=== PATIENT | female | born 1950 ===

== ENCOUNTER 2017-06-22 06:14 | Inpatient (IN) | payer MEDICARE, MEDICAID ==
--- NOTE | 2017-06-19 14:07 | HP ---
AMENDED REPORT NOW INCLUDES COSIGNER DESIGNATION - ESIGNED BEFORE ADJUSTMENTS HISTORY AND PHYSICAL: DATE OF OFFICE VISIT: 06/17/17 DATE OF PROCEDURE: 06/22/17. PROCEDURE: Left total knee replacement. SURGEON: Dr. Aftab Lamb.* (DICTATED BY VICKY KYLE) HISTORY OF PRESENT ILLNESS: Ms. Cormier is a 66-year-old female who has been having progressive troubles with her left knee and has failed conservative treatments such as physical therapy and steroid injections; however, felt that this did not make much difference. She is scheduled to undergo an elective left total knee arthroplasty by Dr. 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 PAST MEDICAL HISTORY: 1. Seizure disorder with the last seizure being several years ago, unknown exact timing. 2. Hypothyroidism. 3. Depression. 4. Osteopenia. 5. Left hemiplegia. 6. Vitamin D deficiency. 7. Mental disability. 8. Anemia. 9. Bipolar disorder. PAST SURGICAL HISTORY: 1. Total knee replacement on the right side in 2011; no complications. 2. Right knee scope in 2015. 3. Appendectomy in 1983. MEDICATIONS: 1. Tegretol-XR 200 mg 2 tablets by mouth twice a day. 2. Lamictal 100 mg 1 tablet in morning and 1 tablet at night. 3. PreviDent 1.1%. 4. Synthroid 125 mcg 1 tablet by mouth daily. 5. Zoloft 100 mg 1 tablet by mouth daily. 6. Tylenol 325 mg 2 tablets every 4 hours as needed for pain. 7. Colace 100 mg 1 tablet by mouth 2 to 3 times a day as needed for constipation. 8. Peridex 0.12% 5 mL twice a day as directed. 9. Prilosec 1 tablet daily. 10. Vitamin B complex 100 mg 1 tablet daily. 11. MiraLAX 1 packet per day as needed for constipation. 12. Caltrate 600 plus vitamin D one tablet by mouth twice daily. 13. Detrol LA 4 mg 1 tablet once daily. 14. Zoloft 50 mg 1 tablet by mouth every day. 15. Joey-In-Rosalie 325 mg 1 tablet daily. 16. Mobic 7.5 mg 1 tablet by mouth daily (this medication was stopped due to the patient's renal insufficiency). ALLERGIES: 1. PENICILLIN. 2. INFLUENZA A VACCINE. [facility] HISTORY: Positive for cancer. Denies any heart trouble or diabetes. SOCIAL HISTORY: The patient currently is living in a detention in an individual living center at [facility]. She is single, disabled. No smoking and no alcohol use. Exercises sporadically. REVIEW OF SYSTEMS: General: Denies recent weight gain or weight loss. No lightheadedness, dizziness, or syncopal episodes. Cephalic: Denies any headaches. Has a history of difficulty with balance. Cardiovascular: No history of LA, chest pain, or palpitations. Respiratory: No chronic cough. No shortness of breath. No history of asthma. GI: Positive history of GERD. No nausea, vomiting, constipation or diarrhea. Genitourinary: No urinary frequency or urgency. No history of blood in the urine or stool. No history of UTIs. Positive history of chronic renal insufficiency, which has been monitored and is being followed by [facility]. Musculoskeletal: Positive for left knee pain. No back pain or neck pain. Neurological: No numbness or tingling. Positive history for footdrop on the left side. Skin: No history of rashes, lumps, or sores. Does have a prior problem with groin rash; however , none currently. Hematologic: Positive for anemia. No history of DVTs or PEs. Endocrine positive hypothyroidism. No diabetes. PHYSICAL EXAMINATION GENERAL: Well appearing, in no acute distress. Alert and oriented, very pleasant. HEENT: Normocephalic, atraumatic. Trachea midline. EOMI. LUNGS: Clear to auscultation bilaterally. No crackles, rhonchi or wheezes. CARDIAC: Regular rate and rhythm. No murmurs, gallops or rubs. ABDOMEN: Soft, nontender, and nondistended. Negative CVA tenderness bilaterally. MUSCULOSKELETAL: Left knee with range of motion of 10 to 110 degrees. Positive valgus deformity. Positive laxity both medial and laterally with firm endpoints. Tender over the lateral and medial joint spaces. No joint effusion noted. DIAGNOSTIC STUDIES/LAB DATA: X-rays were obtained at [facility] and were reviewed by Dr. Lamb, which show [id number] in the lateral compartment with spurs in all 3 compartments and has significant deformity. ASSESSMENT: Endstage osteoarthritis, left knee. PLAN/RECOMMENDATIONS: The patient has elected to undergo a left total knee replacement by Dr. Lamb on 06/22/17. She has been seen by her primary care doctor, Dr. Salamanca at [facility], who has given her medical clearance as she did have a mild elevation of her creatinine to 1.7; however, has been diagnosed with stage [address] Salamanca feels that this is close to her baseline. She has stopped her meloxicam and has recommended avoiding nonsteroidals during the hospital and postoperative period. The patient has still questions with regards to her surgery. She will need rehabilitation afterwards as she will be unable to return to the assisted living facility. VICKY KYLE [id number]/[facility] #: [id number] MTDD
[~2017-06-22 06:14] MED LIST: Buffered Lidocaine 0.9% SYRIN* 5 ML/SYR SYRINGE INTRADERM ONE; Buffered Lidocaine 0.9% SYRIN* 5 ML/SYR SYRINGE ONE; Clindamycin 900 MG IVPREMIX(* 900 MG/50 ML SDV IV ONE; Famotidine IV* 10 MG/ML 2 ML (20 mg) IV ONE; Famotidine IV* 10 MG/ML 2 ML (20 mg) ONE
[2017-06-22] MEDS ORDERED: ceFAZolin 2 GM PREMIX (*) 2 GM/50 ML BAG IVPB ONE (06:59)
[2017-06-22] MEDS ORDERED: Lidocaine 1% MPF wEPI 200,000* 30 ML SDV ONE (07:07)
[2017-06-22] MEDS ORDERED: Bupivacaine 0.5%* 50 ML VIAL ONE (07:07)
[2017-06-22] MEDS ORDERED: Ketorolac INJ* 30 MG/ML 1 ML VIAL ONE (07:08)
[2017-06-22] MEDS ORDERED: Dexamethasone IV* 4 MG/ML 1 ML (4 MG) ONE (07:08)
[2017-06-22] MEDS ORDERED: Midazolam* 1 MG/ML 5 ML VIAL (5 MG) ONE (07:08)
[2017-06-22] MEDS ORDERED: fentaNYL* 50 MCG/ML 5 ML VIAL (250 MCG VIAL) ONE (07:08)
[2017-06-22] MEDS ORDERED: Lidocaine 2% PF * 5 ML VIAL ONE (07:08)
[2017-06-22] MEDS ORDERED: Propofol* 10 MG/ML 20 ML BTL IV PUSH ONE (07:08)
[2017-06-22] MEDS ORDERED: EPHEDrine (Pressors)* 50 MG/ML VIAL ONE (07:45)
[2017-06-22] MEDS ORDERED: Naloxone* 0.4 MG/ML 1 ML VIAL IV PRN (08:17)
[2017-06-22] MEDS ORDERED: fentaNYL* 50 MCG/ML 2 ML VIAL (100 MCG VIAL) IV PRN (08:17)
[2017-06-22] MEDS ORDERED: Ondansetron ODT TAB* 4 MG PO PRN (08:17)
[2017-06-22] MEDS ORDERED: diPHENhydraMINE PO* 25 MG PO PRN (10:01)
[2017-06-22] MEDS ORDERED: Morphine VIAL* 4 MG/ML VIAL (1 ml vial) IV PRN (10:01)
[2017-06-22] MEDS ORDERED: Magnesium Hydroxide LIQ* 30 ML UDC PO PRN (10:01)
[2017-06-22] MEDS ORDERED: diPHENhydraMINE IV* 50 MG/ML 1 ml VIAL (BENADRYL) IV PRN (10:01)
[2017-06-22] MEDS ORDERED: Neomycin/Polym/Bacit TOP OINT* 15 GM TOPICAL PRN (10:11)
[2017-06-22] MEDS ORDERED: Hydrocortisone 1% CREAM* 30 GM TUBE TOPICAL PRN (10:11)
[2017-06-22] MEDS ORDERED: CLEOCIN T 1% TOPICAL PRN (10:11)
[2017-06-22] MEDS ORDERED: HYDROmorphone INJ* 2 MG/ML CARPUJECT SYRINGE ONE (10:57)
[2017-06-22] MEDS: HYDROmorphone INJ* 1 MG/ML CARPUJECT SYRINGE IV PRN ×2 (10:59→11:10)
[2017-06-22] MEDS ORDERED: ceFAZolin 1 GM in Dextrose (*) 1 GM/50 ML BAG IVPB SCH (11:00)
--- NOTE | 2017-06-22 11:13 | RAD ---
Indication: Left knee bipolar arthroplasty 3 views of left knee demonstrates bipolar left knee arthroplasty in satisfactory position. No loosening is noted. IMPRESSION: LEFT KNEE REPLACEMENT IN SATISFACTORY POSITION.
--- NOTE | 2017-06-22 11:23 | OP ---
OPERATIVE REPORT: DATE OF OPERATION: 06/22/17 DATE OF : 52 SURGEON: Aftab Lamb MD ASSISTANT IN NURSING: Kandy Reyes RPA ANESTHESIA: General. PRE-OP DIAGNOSIS: Osteoarthritis, left valgus knee. POST-OP DIAGNOSIS: Osteoarthritis, left valgus knee. OPERATIVE PROCEDURE: Left total knee arthroplasty. ESTIMATED BLOOD LOSS: Less than 50 cc. COMPLICATIONS: None. HARDWARE: Clotilde Persona #5 femur, E tibia, 10 mm polyethylene, 29 mm patella. SUMMARY: Ms. Cormier is a 66-year-old female who has been having more and more troubles with left knee pain. She had a similar history with the right knee where she had very specific arthritic changes and everything was done to try and avoid surgery. She eventually had a right total knee arthroplasty and after 2 weeks she finally was able to get her pain control and progressed with PT. When she presented to the office, the left knee was now at that point. Ms. Cormier and the staff with her were very interested in a left total knee arthroplasty. Considering that nothing had given her lasting relief on the right, I discussed with him that a total knee arthroplasty should work well to decrease her pain and improve her function. We would also try to make sure she was on a standing schedule of pain medication to help with the pain control. Risks of surgery such as infection, scar formation, stiffness, DVT, pulmonary embolism, hardware failure, and the need for rehab were some of the risks discussed. They had all wished to proceed. DESCRIPTION OF PROCEDURE: The patient was brought to the OR and general endotracheal anesthesia was established. Martinez catheter was placed. Tourniquet was placed over the proximal left thigh and was used during the case. Total tourniquet time would be approximately 75 minutes. Left knee was prepped and then draped. Esmarch was used to exsanguinate the leg and the tourniquet was raised. Incision line was infiltrated using 10 cc of 0.5% Marcaine without epinephrine and 2% lidocaine with epinephrine. A total of 60 cc of that mixture would be used where a 10 cc to be placed into the pouch, 10 into each gutter and 20 to the posterior aspect of the knee. Kanyd Reyes was present for all aspects of the case and the case could not have been done without an construction project assistant. Incision was made, centered about the patella and carried down to the skin and her subcutaneous tissues. She had almost no fat. Extensor mechanism was nicely exposed and a sharp parapatellar arthrotomy was made. Quite a bit of clear yellowish joint fluid was encountered. Parapatellar arthrotomy was made and quite a bit of clear yellowish joint fluid was encountered. Fat pad was sharply excised and the soft tissues were sharply elevated from the medial side of the tibia. Patella measured 22 mm in thickness and a nice 9 mm cut was taken. Patella was then easily subluxated laterally. The knee was flexed up. Nice exposure of the distal femur was obtained. Strep drill was used to open the femoral canal. Intramedullary guide was placed. Guide was set to resect 2 mm from the medial side and set at 4 degrees. Guide was aligned with the epicondyles and pinned into place. Distal femoral cutting guide was pinned into place and the intramedullary guide was removed. The intramedullary guide was not seated on the lateral side, but I did not want it on the lateral side as she had quite a bit of bone loss laterally with her valgus deformity. With the cutting guide set, it appeared would take just a skim right off the top side of the femur on that lateral side freshening it up. It appeared like a more normal cut on the medial side. Femoral cut was taken and I was pleased with the cut. She was then measured and a 5 seemed to fit perfectly. Holes were drilled and cutting guide was impacted into place. Drill was run through the superior hole and it appeared that I would not notch the femur. Anterior and posterior femoral cuts followed by the chamfer cuts were all taken. Attention was then turned to the tibia. Step drill was used to open the tibial canal and the intramedullary guide was placed. Outrigger was assembled and adjusted until it appeared it would take just 2 mm from the worn lateral side. This also corresponded to only taking 2 from the not very worn medial side. Cutting guide was pinned into place and the proximal tibial cut was taken. It appeared a nice cut was obtained. A 10 spacer block was placed and she came out nicely into full extension with correction of her deformity and there was no laxity to her MCL. She was tight both in flexion and extension and an additional 2 mm were resected. This then removed the bone, which had been lost on the lateral compartment of the knee. An E seemed to fit perfectly and this was pinned into place. Proximal tibia was drilled and then punched. A #5 femur was placed and the notch cut was then finished and she was trialed with a 10 mm poly. She came out nicely into full extension, easily flexed, and the patella tracked perfectly even without a prosthesis. Patella was sized and the 29 sat very nicely. Holes were drilled and trial was snapped into place. She had the same wonderful motion and stability. Trial instrumentation was removed and the knee was copiously pulse lavaged. Cement was being prepared. Tibia followed by femur and patella were all cemented into place. Once the cement had hardened, the knee was searched for excess cement and then injected with the local. Knee was again copiously pulse lavaged and she was trialed with a 10 and had the same wonderful motion and stability. 10 polyethylene was then snapped into place. Knee was again pulse lavaged and the parapatellar arthrotomy was repaired using interrupted #1 Vicryl sutures. Tourniquet was let down. No significant bleeding was encountered. Subcutaneous tissues were reapproximated with 2-0 Vicryl. Skin was closed using nayeli. Sterile dressing was applied. The patient was extubated in the OR and was stable on transfer to the recovery room. [id number]/[facility] #: [id number] MTDD
[2017-06-22] MEDS ORDERED: Cisatracurium* 2 MG/ML MDV 5 ML ONE (11:52)
[2017-06-22] MEDS: D5W 1/2 NS 1000 ML BAG* 1,000 ML IV SCH ×2 (12:10→22:18)
[2017-06-22] MEDS: Acetaminophen TAB* 325 MG PO SCH ×2 (13:56→22:10)
[2017-06-22] MEDS: Heparin VIAL(*) 5000 UNITS/ML VIAL (FIVE THOUSAND) SUBCUT SCH ×2 (13:57→22:14)
[2017-06-22] MEDS: traMADol TAB* 50 MG PO SCH ×3 (13:59→17:20)
[2017-06-22] MEDS ORDERED: Acetaminophen TAB* 325 MG PO SCH (14:00)
[2017-06-22] MEDS ORDERED: Acetaminophen ADULT LIQ* 650 MG/20.3 ML UDC PO SCH (14:00)
--- NOTE | 2017-06-22 15:22 | CONS ---
CONSULTATION REPORT: DATE OF CONSULTATION: 06/22/17. REQUESTING PHYSICIAN: Dr. Lamb. REASON FOR CONSULTATION: Medical co-management postoperatively. CHIEF COMPLAINT: Knee osteoarthritis, admitted after an elective left total knee replacement. HISTORY OF PRESENT ILLNESS: This is a 66-year-old female with a complicated history which is obtained from her nurse Vanessa at the facility she resides in. Ms. Cormier was taken to the operating room this morning electively for a left total knee after severe osteoarthritis has failed conservative measures. We were asked to see the patient for medical co-management. Her medical history includes; history of seizure disorder, hypothyroidism, mental retardation, bipolar disorder, chronic kidney disease, left sided hemiparesis since , stress incontinence, and fibroids. All of these conditions have been managed by her primary care physician at [facility] and she has also recently been seeing [facility] for work up of a newly diagnosed chronic kidney disease. According to Vanessa the etiology of her chronic kidney disease has not yet been uncovered. Ms. Cormier is seen in the PACU this morning and she feels well. She is awake and says she has some pain in her legs, however Vanessa adds that Libia always complains of pain and that a pain assessment postoperatively will have to use some discretion given Libia' chronic pain and mental retardation. PAST MEDICAL HISTORY: 1. History of seizure disorder, she has not had seizure for 10 years. 2. Hypothyroidism. 3. Bipolar disorder and depression. 4. Mental retardation. 5. Chronic kidney disease. 6. Iron and B12 deficiency. 7. 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 8. Stress incontinence. 9. Uterine fibroids. PAST SURGICAL HISTORY: Ms. Cormier also had her right knee replaced. She has had an appendectomy and vaginal cyst removed. HOME MEDICATIONS: I have asked Vanessa to bring in an updated home medication list. I will review this when she brings it back. SOCIAL HISTORY: Ms. Cormier lives at a residential home for people with disabilities in [place]. Her decision maker is her cousin Briseida Resendiz, who signs her consents for her. She also has siblings who live on [place]. She has no history of substance abuse. REVIEW OF SYSTEMS: Ms. Cormier denies chest pain, shortness of breath, nausea, vomiting, diarrhea, constipation, recent illness, with cough, cold, runny nose, sore throat. PHYSICAL EXAMINATION: Heart rate 91, respiratory rate 17, pulse ox 96% on 2 L, blood pressure 126/86, temperature 97.7. General: Alert, well appearing female in no distress. HEENT: Pupils equal round and reactive to light. Moist oral mucosa. Poor dentition. She does have a slight left facial droop, however this is difficult assess as she is uncooperative with a cranial nerve exam. Neck : No cervical or supraclavicular lymphadenopathy. No JVP. Chest: Regular rate and rhythm. No murmurs appreciated. PMI is nondisplaced. Lungs are clear bilaterally. Abdomen is soft, nontender, nondistended. No guarding or rebound. Extremities: Left knee is in Carlos wrap and in an immobilizer. Her DP and PT pulses are 2+ bilaterally. Her left sided upper and lower extremities are 0/5 in strength and right sided 5/5. LABORATORY DATA: Labs reviewed on 06/17/17, her creatinine was 1.73, no baseline is available in our system, at that time her LFTs and electrolytes were within normal limits. On 06/17/17, her white blood cells, hemoglobin and platelets were also within normal limits. She had a negative urinalysis at that time as well. ASSESSMENT AND PLAN: This is a 66-year-old female with history of endstage osteoarthritis, mental retardation and mental illness, who underwent an elective left TKA this morning and we were asked to see for medical co- management. 1. Status post left TKA postop day #0: Defer PT and pain management to orthopedic surgery. I would avoid NSAIDs. Her nurse Vanessa states that she has responded well to narcotics in the past and has not had any issues with pain management, otherwise. 2. Chronic kidney disease: This is still being worked up by her PCP and her postal service clerk. Again I would avoid nephrotoxic medications and keep her euvolemic and avoid hypotension. The differential for her chronic kidney disease is broad at this point, but we will monitor her volume status and her electrolytes closely. 3. Seizure disorder: She has not had seizure for 10 years. The orthopedic team has continued her carbamazepine and lamotrigine which I would agree with. I will review her med rec when Vanessa brings them in this afternoon. 4. Bipolar disorder and depression: I agree with continuing her home medications as you have done. She is on sertraline and lamotrigine. 5. Mental retardation noted. Her nurse Vanessa is helpful in the history. Vanessa cell phone number is [phone]. 6. History of stress incontinence: Continue tolterodine. 7. DVT prophylaxis: I see that warfarin has been started by orthopedic surgery. 8. Hypothyroidism: Continue Synthroid as ordered. Thank you for allowing me to participate in the care of this patient. Please feel free to call me with any questions or concerns. [id number]/[facility] #: [id number] JORGE
[2017-06-22] MEDS: ceFAZolin 1 GM in Dextrose (*) 1 GM/50 ML BAG IVPB SCH (15:50)
[2017-06-22] MEDS ORDERED: Warfarin TAB(*) 6 MG PO ONE (17:00)
[2017-06-22] MEDS: Docusate CAP* 100 MG PO SCH ×2 (17:17→22:09)
[2017-06-22] MEDS: PREVIDENT SCH (17:18)
[2017-06-22] MEDS: carBAMazepine TAB(*) 200 MG PO SCH (22:08)
[2017-06-22] MEDS: lamoTRIgine TAB(*) 100 MG PO SCH (22:08)
[2017-06-22] MEDS: oxyCODONE TAB* 5 MG TAB PO PRN (22:09)
[2017-06-22] MEDS: Ferrous Gluconate TAB* 324 MG TAB PO SCH (22:10)
[2017-06-22] MEDS: Magnesium Hydroxide LIQ* 30 ML UDC PO SCH (22:12)
[2017-06-22] MEDS: Chlorhexidine MOUTHWASH 0.12%* 15 ML UDC SWISH SPIT SCH (22:13)
[2017-06-23] MEDS: ceFAZolin 1 GM in Dextrose (*) 1 GM/50 ML BAG IVPB SCH ×2 (00:02→07:56)
[2017-06-23] MEDS: Morphine VIAL* 4 MG/ML VIAL (1 ml vial) IV PRN ×2 (00:08→07:03)
[2017-06-23 05:19] LABS: Hematocrit 26 % (35-47); Mean Platelet Volume 5.9 um3 (7.4-10.4); Platelet Count 182 10^3/ul (150-450)
[2017-06-23 05:27] LABS: INR 0.97 (0.77-1.02)
[2017-06-23 05:35] LABS: EGFR Non-African American 32.3 (>60)
[2017-06-23] MEDS: traMADol TAB* 50 MG PO SCH ×2 (05:37→17:11)
[2017-06-23] MEDS: Levothyroxine TAB* 125 MCG TAB PO SCH (05:37)
[2017-06-23] MEDS: Heparin VIAL(*) 5000 UNITS/ML VIAL (FIVE THOUSAND) SUBCUT SCH ×3 (05:38→21:55)
[2017-06-23] MEDS: oxyCODONE TAB* 5 MG TAB PO PRN ×3 (07:01→19:20)
[2017-06-23] MEDS: Polyethylene Glycol 3350* 17 GM PACKET PO SCH (09:50)
[2017-06-23] MEDS: lamoTRIgine TAB(*) 100 MG PO SCH ×2 (09:51→21:49)
[2017-06-23] MEDS: Docusate CAP* 100 MG PO SCH ×3 (09:51→21:49)
[2017-06-23] MEDS: carBAMazepine TAB(*) 200 MG PO SCH ×2 (09:51→21:49)
[2017-06-23] MEDS: Omeprazole CAP* 20 MG PO SCH (09:52)
[2017-06-23] MEDS: Oxybutynin XL TAB* 5 MG PO SCH (09:52)
[2017-06-23] MEDS: Acetaminophen TAB* 325 MG PO SCH ×3 (09:53→21:48)
[2017-06-23] MEDS: Sertraline* 50 MG TAB PO SCH (09:54)
[2017-06-23] MEDS: Sertraline* 100 MG TAB PO SCH (09:54)
[2017-06-23] MEDS: Ferrous Gluconate TAB* 324 MG TAB PO SCH ×2 (09:56→21:49)
[2017-06-23] MEDS: Magnesium Hydroxide LIQ* 30 ML UDC PO SCH ×2 (09:56→21:52)
[2017-06-23] MEDS: Cyclobenzaprine TAB* 10 MG PO PRN ×2 (10:07→21:49)
[2017-06-23] MEDS: Chlorhexidine MOUTHWASH 0.12%* 15 ML UDC SWISH SPIT SCH ×2 (10:09→21:53)
--- NOTE | 2017-06-23 10:23 | PN ---
Progress Note - Progress Note Date of Service: 06/23/17 SOAP: Subjective: []Patient seen OOB in chair. She reports significant pain of her left knee but does not give a numeric value. Denies chest pain, shortness of breath, dizziness. 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 Per nurse Vanessa, took 7-10 days to cooperative with physical therapy after RTK and at baseline although slower to respond, her left side is functional including ability to DF/ PF and wiggle toes. Objective: [] Vital Signs Temp 98.5 F 06/23/17 07:47 Pulse 84 06/23/17 07:47 Resp 18 06/23/17 10:08 BP 109/59 06/23/17 07:47 Pulse Ox 95 06/23/17 08:00 Intake & Output 06/22/17 06/23/17 06/23/17 18:59 06:59 18:59 Intake Total 2430 2080 360 Output Total 625 1700 150 Balance 1805 380 210 Intake: IV Fluids 1950 980 D5W 1/2 NS 980 LR 1900 NS 50ML, Cefazolin 2G 50 Oral 480 1100 360 Output: Urine 150 Martinez 625 1700 Other: Estimated Void Small # Bowel Movements 1 Estimated Stool Amount Medium Laboratory Last Values Hgb 9.0 g/dl (12.0-16.0) L 06/23/17 05:12 Hct 26 % (35-47) L 06/23/17 05:12 Plt Count 182 10^3/ul (150-450) 06/23/17 05:12 MPV 5.9 um3 (7.4-10.4) L 06/23/17 05:12 INR (Anticoag Therapy) 0.97 (0.77-1.02) 06/23/17 05:12 Sodium 139 mmol/L (139-145) 06/23/17 05:12 Potassium 4.0 mmol/L (3.5-5.0) 06/23/17 05:12 Chloride 106 mmol/L (101-111) 06/23/17 05:12 Carbon Dioxide 28 mmol/L (22-32) 06/23/17 05:12 Anion Gap 5 mmol/L (2-11) 06/23/17 05:12 BUN 26 mg/dL (6-24) H 06/23/17 05:12 Creatinine 1.60 mg/dL (0.51-0.95) H 06/23/17 05:12 Est GFR ( Amer) 41.6 (>60) 06/23/17 05:12 Est GFR (Non-Af Amer) 32.3 (>60) 06/23/17 05:12 BUN/Creatinine Ratio 16.3 (8-20) 06/23/17 05:12 Glucose 133 mg/dL (70-100) H 06/23/17 05:12 Calcium 8.6 mg/dL (8.6-10.3) 06/23/17 05:12 General: Well appearing, NAD. Standing with PT to transfer bed to chair, patient is loudly vocalizing pain. Once seated and resting she is more comfortable but yells out in pain with anticipation of and during LLE exam. LLE: Dressing CDI without surrounding erythema. 1+ edema without erythema of the lower leg, no palpable cords. Unwilling to attempt DF/PF or wiggle toes due to pain, nurse states she did witness wiggling toes. 2+ DP, PT pulse. Capillary refill less than two seconds distally. RLE: Calf soft and supple without erythema or edema. Assessment: []POD 1 sp left total knee replacement, Dr Lamb 06/22/17 Plan: []WBAT with assist PT/OT, encouraged participation to best of ability Lovenox, coumadin 6 mg Pain control- added cyclobenzaprine. If still not controlled will increase oxycodone dosage. Caution with pain medications due to renal fx Awaiting bed offer for [facility]
--- NOTE | 2017-06-23 13:32 | PN ---
Subjective Date of Service: 06/23/17 Interval History: Crying when I saw her this morning. She tells me she just wants to call her friends. She cannot tell me any other specific complaints. Objective Active Medications: Acetaminophen (Tylenol Tab*) 975 mg PO TID [facility] Last Admin: 06/23/17 13:18 Dose: 975 mg Carbamazepine (Tegretol Tab(*)) 400 mg PO BID [facility] Last Admin: 06/23/17 09:51 Dose: 400 mg Chlorhexidine Gluconate (Peridex Mouth Wash 0.12%*) 15 ml SWISH SPIT BID [facility] Last Admin: 06/23/17 10:09 Dose: Not Given Cyclobenzaprine HCl (Flexeril Tab*) 5 mg PO TID PRN PRN Reason: SPASMS Last Admin: 06/23/17 10:07 Dose: 5 mg Diphenhydramine HCl (Benadryl Iv*) 25 mg IV Q6H PRN PRN Reason: itching Diphenhydramine HCl (Benadryl Po*) 25 mg PO Q6H PRN PRN Reason: itching Docusate Sodium (Colace Cap*) 100 mg PO BID [facility] Last Admin: 06/23/17 09:51 Dose: 100 mg Docusate Sodium (Colace Cap*) 200 mg PO QPM [facility] Last Admin: 06/22/17 17:17 Dose: 200 mg Ferrous Gluconate (Fergon Tab*) 324 mg PO BID [facility] Last Admin: 06/23/17 09:56 Dose: 324 mg Heparin Sodium (Porcine) (Heparin Vial(*)) 5,000 units SUBCUT Q8HR [facility] Last Admin: 06/23/17 13:21 Dose: 5,000 units Hydrocortisone (Hytone Cream 1%*) 1 applic TOPICAL QID PRN PRN Reason: Insect Bites Dextrose/Sodium Chloride (D5w 1/2 Ns 1000 Ml Bag*) 1,000 mls @ 100 mls/hr IV PER RATE [facility] Last Admin: 06/22/17 22:18 Dose: 100 mls/hr Lamotrigine (Lamictal Tab(*)) 100 mg PO BID [facility] Last Admin: 06/23/17 09:51 Dose: 100 mg Levothyroxine Sodium (Synthroid Tab*) 125 mcg PO 0600 [facility] Last Admin: 06/23/17 05:37 Dose: 125 mcg Magnesium Hydroxide (Milk Of Magnesia Liq*) 30 ml PO BID [facility] Last Admin: 06/23/17 09:56 Dose: Not Given Magnesium Hydroxide (Milk Of Magnesia Liq*) 30 ml PO Q6H PRN PRN Reason: constipation Morphine Sulfate (Morphine Vial*) 2 mg IV Q2H PRN PRN Reason: PAIN - BREAKTHROUGH Morphine Sulfate (Morphine Vial*) 4 mg IV Q2H PRN PRN Reason: PAIN - UNRELIEVED Last Admin: 06/23/17 07:03 Dose: 4 mg Neomycin/Polymyxin/Bacitracin (Neosporin Top Oint Tube*) 1 applic TOPICAL BID PRN PRN Reason: Cuts/Abrasions Non-Formulary Medication (Cleocin-T 1% Topical(Nf)) 1 applic TOPICAL BID PRN PRN Reason: GROIN BOILS Non-Formulary Medication (Prevident 5000) 1 applic .SEE ORDER QPM [facility] Last Admin: 06/22/17 17:18 Dose: Not Given Omeprazole (Prilosec Cap*) 20 mg PO [facility] Last Admin: 06/23/17 09:52 Dose: 20 mg Oxybutynin Chloride (Ditropan Xl Tab*) 10 mg PO [facility] PRN Reason: Protocol Last Admin: 06/23/17 09:52 Dose: 10 mg Oxycodone HCl (Roxycodone Tab*) 5 mg PO Q3H PRN PRN Reason: PAIN - SEVERE Last Admin: 06/23/17 13:18 Dose: 5 mg Polyethylene Glycol/Electrolytes (Miralax*) 17 gm PO [facility] Last Admin: 06/23/17 09:50 Dose: 17 gm Sertraline HCl ([facility]oloft*) [facility] [place] Last Admin: 06/23/17 09:54 Dose: 25 mg Sertraline HCl (Zoloft*) 100 mg PO [facility] Last Admin: 06/23/17 09:54 Dose: 100 mg Tramadol HCl (Ultram*) 50 mg PO Q12H [facility] Last Admin: 06/23/17 05:37 Dose: 50 mg Vital Signs - 8 hr 06/23/17 06/23/17 06/23/17 05:37 07:01 07:03 Temperature Pulse Rate Respiratory 16 18 18 Rate Blood Pressure (mmHg) O2 Sat by Pulse Oximetry 06/23/17 06/23/17 06/23/17 07:47 08:00 08:01 Temperature 98.5 F Pulse Rate 84 Respiratory 18 18 18 Rate Blood Pressure 109/59 (mmHg) O2 Sat by Pulse 95 95 Oximetry 06/23/17 06/23/17 06/23/17 08:07 10:07 10:08 Temperature Pulse Rate Respiratory 16 18 18 Rate Blood Pressure (mmHg) O2 Sat by Pulse Oximetry 06/23/17 06/23/17 06/23/17 11:05 12:36 13:18 Temperature 98.6 F Pulse Rate 89 Respiratory 18 18 16 Rate Blood Pressure 108/59 (mmHg) O2 Sat by Pulse 96 Oximetry Oxygen Devices in Use Now: None Appearance: alert, sad but easily reassured Eyes: No Scleral Icterus Ears/Nose/Mouth/Throat: NL Teeth, Lips, Gums, - - left facial droop at baseline Neck: NL Appearance and Movements; NL JVP Respiratory: Symmetrical Chest Expansion and Respiratory Effort, Clear to Auscultation Cardiovascular: NL Sounds; No Murmurs; No JVD, RRR Abdominal: NL Sounds; No Tenderness; No Distention Lymphatic: No Cervical Adenopathy Extremities: No Edema Skin: No Rash or Ulcers Neurological: - - left upper and lower extremities 0/5, right 5/5. left knee dressed and immobilized. 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 - Patient Problems (1) CKD (chronic kidney disease) stage 3, GFR 30-59 ml/min Current Visit: Yes Status: Acute Code(s): N18.3 - CHRONIC KIDNEY DISEASE, STAGE 3 (MODERATE) SNOMED Code(s): 869670094 Comment: at baseline; currently being worked up by [facility] thought to be from chronic antipsychotic medications avoid NSAIDs keep euvolemic and avoid hypotension (2) Seizure disorder Current Visit: Yes Status: Acute Code(s): G40.909 - EPILEPSY, UNSP, NOT INTRACTABLE, WITHOUT STATUS EPILEPTICUS SNOMED Code(s): 785704760 Comment: continue lamotrigine and carbamazapine (3) Status post total knee replacement, left Current Visit: Yes Status: Acute Code(s): Z96.652 - PRESENCE OF LEFT ARTIFICIAL KNEE JOINT SNOMED Code(s): 7985298581450 Comment: PT and pain control per ortho
[2017-06-23] MEDS ORDERED: Warfarin TAB(*) 6 MG PO ONE (17:00)
[2017-06-23] MEDS: PREVIDENT SCH (17:18)
--- NOTE | 2017-06-23 20:29 | RAD ---
INDICATION: Abdominal distention COMPARISON: None TECHNIQUE: A single view of the abdomen is submitted. FINDINGS: Bones: There are no acute bony findings. Soft tissues: The soft tissues appear normal. The psoas margins are sharp. Bowel gas pattern: There is mild distention of the stomach which is air-filled. There are mildly distended bowel loops in the central abdomen may represent an air-filled and redundant sigmoid colon. There is no gas in the rectum. There is stool in right colon. Calcifications: There are no abnormal calcifications. Other: None IMPRESSION: NONSPECIFIC BOWEL GAS PATTERN. SUSPECT REDUNDANT AND AIR-FILLED SIGMOID COLON. SUGGEST FOLLOW-UP.
[2017-06-24] MEDS: oxyCODONE TAB* 5 MG TAB PO PRN ×2 (04:08→08:29)
[2017-06-24 05:34] LABS: Hematocrit 27 % (35-47); Hemoglobin 9.4 g/dl (12.0-16.0); INR 1.55 (0.77-1.02); Mean Platelet Volume 6.7 um3 (7.4-10.4); Platelet Count 195 10^3/ul (150-450)
[2017-06-24] MEDS: Heparin VIAL(*) 5000 UNITS/ML VIAL (FIVE THOUSAND) SUBCUT SCH (05:40)
[2017-06-24] MEDS: Levothyroxine TAB* 125 MCG TAB PO SCH (05:40)
[2017-06-24] MEDS: traMADol TAB* 50 MG PO SCH (05:40)
[2017-06-24] MEDS: Docusate CAP* 100 MG PO SCH (08:24)
[2017-06-24] MEDS: Omeprazole CAP* 20 MG PO SCH (08:25)
[2017-06-24] MEDS: Ferrous Gluconate TAB* 324 MG TAB PO SCH (08:25)
[2017-06-24] MEDS: Sertraline* 100 MG TAB PO SCH (08:25)
[2017-06-24] MEDS: Acetaminophen TAB* 325 MG PO SCH (08:26)
[2017-06-24] MEDS: Oxybutynin XL TAB* 5 MG PO SCH (08:27)
[2017-06-24] MEDS: lamoTRIgine TAB(*) 100 MG PO SCH (08:28)
[2017-06-24] MEDS: Sertraline* 50 MG TAB PO SCH (08:28)
[2017-06-24] MEDS: carBAMazepine TAB(*) 200 MG PO SCH (08:28)
[2017-06-24] MEDS: Magnesium Hydroxide LIQ* 30 ML UDC PO SCH (08:49)
[2017-06-24] MEDS: Chlorhexidine MOUTHWASH 0.12%* 15 ML UDC SWISH SPIT SCH (08:49)
[2017-06-24] MEDS: Polyethylene Glycol 3350* 17 GM PACKET PO SCH (08:49)
[2017-06-24] MEDS: Cyclobenzaprine TAB* 10 MG PO PRN (10:32)
--- NOTE | 2017-06-24 10:44 | PN ---
Subjective Date of Service: 06/24/17 Interval History: Pt attests to 10/10 pain with walking this AM, improved with tramadol to 2/10 denies chest pain, SOB, abdominal pain, nausea. Had BM this AM. Eating well. had some throbbing pain in left foot yesterday but not today. Objective Active Medications: Acetaminophen (Tylenol Tab*) 975 mg PO TID [facility] Last Admin: 06/24/17 08:26 Dose: 975 mg Carbamazepine (Tegretol Tab(*)) 400 mg PO BID [facility] Last Admin: 06/24/17 08:28 Dose: 400 mg Chlorhexidine Gluconate (Peridex Mouth Wash 0.12%*) 15 ml SWISH SPIT BID [facility] Last Admin: 06/24/17 08:49 Dose: Not Given Cyclobenzaprine HCl (Flexeril Tab*) 5 mg PO TID PRN PRN Reason: SPASMS Last Admin: 06/24/17 10:32 Dose: 5 mg Diphenhydramine HCl (Benadryl Iv*) 25 mg IV Q6H PRN PRN Reason: itching Diphenhydramine HCl (Benadryl Po*) 25 mg PO Q6H PRN PRN Reason: itching Docusate Sodium (Colace Cap*) 100 mg PO BID [facility] Last Admin: 06/24/17 08:24 Dose: 100 mg Docusate Sodium (Colace Cap*) 200 mg PO QPM [facility] Last Admin: 06/23/17 17:11 Dose: 200 mg Ferrous Gluconate (Fergon Tab*) 324 mg PO BID [facility] Last Admin: 06/24/17 08:25 Dose: 324 mg Heparin Sodium (Porcine) (Heparin Vial(*)) 5,000 units SUBCUT Q8HR [facility] Last Admin: 06/24/17 05:40 Dose: 5,000 units Hydrocortisone (Hytone Cream 1%*) 1 applic TOPICAL QID PRN PRN Reason: Insect Bites Dextrose/Sodium Chloride (D5w 1/2 Ns 1000 Ml Bag*) 1,000 mls @ 100 mls/hr IV PER RATE [facility] Last Admin: 06/22/17 22:18 Dose: 100 mls/hr Lamotrigine (Lamictal Tab(*)) 100 mg PO BID [facility] Last Admin: 06/24/17 08:28 Dose: 100 mg Levothyroxine Sodium (Synthroid Tab*) 125 mcg PO 0600 [facility] Last Admin: 06/24/17 05:40 Dose: 125 mcg Magnesium Hydroxide (Milk Of Magnesia Liq*) 30 ml PO BID [facility] Last Admin: 06/24/17 08:49 Dose: Not Given Magnesium Hydroxide (Milk Of Magnesia Liq*) 30 ml PO Q6H PRN PRN Reason: constipation Morphine Sulfate (Morphine Vial*) 2 mg IV Q2H PRN PRN Reason: PAIN - BREAKTHROUGH Morphine Sulfate (Morphine Vial*) 4 mg IV Q2H PRN PRN Reason: PAIN - UNRELIEVED Last Admin: 06/23/17 07:03 Dose: 4 mg Neomycin/Polymyxin/Bacitracin (Neosporin Top Oint Tube*) 1 applic TOPICAL BID PRN PRN Reason: Cuts/Abrasions Omeprazole ([facility]c Cap*) [facility] Last Admin: 06/24/17 08:25 Dose: 20 mg Oxybutynin Chloride (Ditropan Xl Tab*) 10 mg PO [facility] PRN Reason: Protocol Last Admin: 06/24/17 08:27 Dose: 10 mg Oxycodone HCl (Roxycodone Tab*) 5 mg PO Q3H PRN PRN Reason: PAIN - SEVERE Last Admin: 06/24/17 08:29 Dose: 5 mg Pharmacy Profile Note (Coumadin Daily Reminder*) 1 note FOLLOW UP 1700 [facility] Polyethylene Glycol/Electrolytes (Miralax*) [facility] [place] Last Admin: 06/24/17 08:49 Dose: Not Given Sertraline HCl (Zoloft*) [facility] Last Admin: 06/24/17 08:28 Dose: 25 mg Sertraline HCl (Zoloft*) [facility] Last Admin: 06/24/17 08:25 Dose: 100 mg Tramadol HCl (Ultram*) 50 mg PO Q12H [facility] Last Admin: 06/24/17 05:40 Dose: 50 mg Vital Signs - 8 hr 06/24/17 06/24/17 06/24/17 04:00 04:08 04:11 Temperature 98.6 F Pulse Rate 100 Respiratory 16 18 Rate Blood Pressure 150/108 104/90 (mmHg) O2 Sat by Pulse 90 Oximetry 06/24/17 06/24/17 06/24/17 05:39 05:40 06:44 Temperature Pulse Rate 91 Respiratory 20 18 Rate Blood Pressure (mmHg) O2 Sat by Pulse 93 Oximetry 06/24/17 06/24/17 06/24/17 07:22 07:54 08:00 Temperature 97.7 F Pulse Rate 91 Respiratory 16 16 Rate Blood Pressure 112/67 (mmHg) O2 Sat by Pulse 100 100 100 Oximetry 06/24/17 06/24/17 06/24/17 08:29 08:34 10:32 Temperature Pulse Rate Respiratory 16 16 16 Rate Blood Pressure (mmHg) O2 Sat by Pulse Oximetry Oxygen Devices in Use Now: None Appearance: NAD, sitting in chair. Eyes: No Scleral Icterus, PERRLA Ears/Nose/Mouth/Throat: NL Teeth, Lips, Gums Neck: NL Appearance and Movements; NL JVP Respiratory: Symmetrical Chest Expansion and Respiratory Effort, Clear to Auscultation Cardiovascular: NL Sounds; No Murmurs; No JVD, RRR Abdominal: NL Sounds; No Tenderness; No Distention, No Hepatosplenomegaly Extremities: No Edema, No Clubbing, Cyanosis, - - left knee in brace/cooling apparatus Skin: No Rash or Ulcers Neurological: Alert and Oriented x 3, NL Sensation, NL Muscle Strength and Tone Nutrition: Taking PO's Result Diagrams: 06/24/17 05:08 06/23/17 05:12 Additional Lab and Data: Laboratory Results - last 24 hr 06/24/17 06/24/17 05:08 05:08 Hgb 9.4 L Hct 27 L Plt Count 195 MPV 6.7 L INR (Anticoag Therapy) 1.55 H Assess/Plan/Problems-Billing Assessment: 66 yo female with history of ckd, b12/iron deficiency, bipolar disorder, mental retardation, and 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 - Patient Problems (1) CKD (chronic kidney disease) stage 3, GFR 30-59 ml/min Current Visit: Yes Status: Acute Code(s): N18.3 - CHRONIC KIDNEY DISEASE, STAGE 3 (MODERATE) SNOMED Code(s): 548474579 Comment: at baseline; currently being worked up by [facility] thought to be from chronic antipsychotic medications avoid NSAIDs keep euvolemic and avoid hypotension. SBP 100-150s last 24 hours. (2) History of total left knee replacement (TKR) Current Visit: Yes Status: Acute Code(s): Z96.652 - PRESENCE OF LEFT ARTIFICIAL KNEE JOINT SNOMED Code(s): 2901642280779 Comment: now on coumadin. INR 1.5 pain control with tramadol currently. per ortho. (3) Seizure disorder Current Visit: Yes Status: Acute Code(s): G40.909 - EPILEPSY, UNSP, NOT INTRACTABLE, WITHOUT STATUS EPILEPTICUS SNOMED Code(s): 240524718 Comment: continue lamotrigine and carbamazapine (4) Status post total knee replacement, left Current Visit: Yes Status: Acute Code(s): Z96.652 - PRESENCE OF LEFT ARTIFICIAL KNEE JOINT SNOMED Code(s): 2641168042485 Comment: PT and pain control per ortho Status and Disposition: ortho inpatient. No objection to discharge to [facility] later today.
--- NOTE | 2017-06-24 11:08 | PN ---
Progress Note - Progress Note Date of Service: 06/24/17 SOAP: Subjective: []Patient seen at bedside. Her pain is better controlled today, she is yelling out less. Denies chest pain, shortness of breath, dizziness. Objective: [] Vital Signs Temp 97.7 F 06/24/17 07:22 Pulse 91 06/24/17 07:22 Resp 18 06/24/17 10:47 BP 112/67 06/24/17 07:22 Pulse Ox 100 06/24/17 08:00 Intake & Output 06/23/17 06/24/17 06/24/17 18:59 06:59 18:59 Intake Total 560 750 200 Output Total 550 1025 350 Balance 10 -275 -150 Intake: Oral 560 750 200 Output: Urine 550 1025 350 Other: # Bowel Movements 0 Estimated Stool Amount Medium Laboratory Last Values Hgb 9.4 g/dl (12.0-16.0) L 06/24/17 05:08 Hct 27 % (35-47) L 06/24/17 05:08 Plt Count 195 10^3/ul (150-450) 06/24/17 05:08 MPV 6.7 um3 (7.4-10.4) L 06/24/17 05:08 INR (Anticoag Therapy) 1.55 (0.77-1.02) H 06/24/17 05:08 Sodium 139 mmol/L (139-145) 06/23/17 05:12 Potassium 4.0 mmol/L (3.5-5.0) 06/23/17 05:12 Chloride 106 mmol/L (101-111) 06/23/17 05:12 Carbon Dioxide 28 mmol/L (22-32) 06/23/17 05:12 Anion Gap 5 mmol/L (2-11) 06/23/17 05:12 BUN 26 mg/dL (6-24) H 06/23/17 05:12 Creatinine 1.60 mg/dL (0.51-0.95) H 06/23/17 05:12 Est GFR ( Amer) 41.6 (>60) 06/23/17 05:12 Est GFR (Non-Af Amer) 32.3 (>60) 06/23/17 05:12 BUN/Creatinine Ratio 16.3 (8-20) 06/23/17 05:12 Glucose 133 mg/dL (70-100) H 06/23/17 05:12 Calcium 8.6 mg/dL (8.6-10.3) 06/23/17 05:12 General: Well appearing, NAD. More cooperative today. LLE: Dressing changed. Incision with well approximated wound edges, CDI without surrounding erythema. Lateral knee with three superficial blisters where skin indentation from pierre wrap is. No surrounding erythema. 1+ edema without erythema of the lower leg, no palpable cords. Expresses pain and unwillingness when asked to attempt df/pf or toe wiggle. 2+ DP, PT pulse. Capillary refill less than two seconds distally. RLE: Calf soft and supple without erythema or edema. Assessment: []POD 2 sp left total knee replacement, Dr Lamb 06/22/17 Plan: []WBAT with assist PT/OT heparin, coumadin 4 mg today DC to [facility] today
[2017-06-24 12:18] VITALS: BP 100/62
--- NOTE | 2017-06-24 13:46 | DS ---
AMENDED REPORT NOW INCLUDES COSIGNER DESIGNATION - ESIGNED BEFORE ADJUSTMENT DISCHARGE SUMMARY: DATE OF ADMISSION: 06/22/17 DATE OF DISCHARGE: 06/24/17 SURGEON: Dr. Aftab Lamb. * (DICTATED BY VICKY PIPER) LENS SILVERER: VICKY Piper PRE-OP DIAGNOSIS: Osteoarthritis, left valgus knee. OPERATIVE PROCEDURE: Left total knee arthroplasty. HISTORY: Ms. Cormier is a 66-year-old female, who has been having more and more troubles with left knee pain. She has a similar history on the right knee where she had very specific arthritic changes and everything was done to try and avoid surgery. She eventually had a right total knee arthroplasty and after 2 weeks, she was finally able to get her pain under control and progressed with physical therapy. When she presented to our office, her left knee was at the same point her right knee was and decision was made to undergo a left total knee arthroplasty. HOSPITAL COURSE: The patient was admitted to [facility] on . She underwent a left total knee arthroplasty without complications. She recovered briefly in the PACU and then was transferred to the short-stay surgical unit in stable condition. She was also seen by a hospitalist service during her stay for chronic kidney disease, seizure disorder and no change in her baseline medications. On postop day #1, she was well appearing, in no acute distress, though when her left leg is moved or touched even gently in a remote location from the incision, she would shout out in a great deal of pain. Per her home nurse Vanessa, it took 7 to 10 days to cooperate and participate with physical therapy after her right total knee replacement. Due to this history, it is expected that it is going to take her a bit longer to progress with physical therapy. Her dressing was clean, dry and intact without any surrounding erythema. She did have 1+ edema of her left lower extremity without any erythema of the calf and without palpable cords. She was not dorsiflexing, plantar flexing or wiggling toes. She does have a left-sided hemiparesis, though reportedly she does have some function and range of motion of the left lower extremity at baseline, though her movements are slower to respond. On postop day 2, she was well appearing, in no acute distress. She has been yelling out less in pain today. I was able to change her dressing without any difficulty and without patient experiencing severe pain. Her dressing was changed, the incision was well approximated. Wound edge was clean , dry and intact without any surrounding erythema. On the lateral aspect of her knee, she did have 3 superficial blisters each less than 1 cm in size at the site of skin indentation from the Carlos wrap. She had no surrounding erythema and no point tenderness over this area. She had 1+ edema of the left calf. She again is not able to dorsiflex, plantar flex or wiggle her toes, has undetermined her baseline function though. She does have weakness and slowness to respond in the left lower extremity and foot. 2+ dorsalis pedis pulse, posterior tibial pulse. Capillary refill is less than 2 seconds distally. She is deemed medically and orthopedically stable for discharge to [facility] today. Her hemoglobin was 9.4, hematocrit 27, INR 1.55. Her temperature is 97.7, pulse 91, respiratory rate 18, blood pressure 112/67 and pulse ox 100. MEDICATIONS: Medications resumed at home include: 1. Sertraline 25 mg p.o. q.a.m., sertraline 100 mg p.o. q.a.m. 2. Calcium 600 plus vitamin D two tablets p.o. q.p.m. 3. Lamotrigine 100 mg p.o. b.i.d. 4. Detrol LA 4 mg capsule ER 24 hours 4 mg p.o. q.a.m. 5. Carbamazepine 400 mg p.o. b.i.d. 6. PreviDent 5000 one application, see order form PM. 7. Peridex 0.12, 15 mL swish and spit b.i.d. 8. Vitamin B12 1000 mcg p.o. q.a.m. 9. Docusate 200 mg p.o. q.p.m. 10. Polyethylene glycol 3350, 17 g powder pack 1 packet p.o. q.a.m. 11. Ferrous gluconate 324 mg tablet p.o. b.i.d. 12. Synthroid 125 mcg 1 tab p.o. q.a.m. 13. Hydrocortisone 1% cream 1 application topically 4 times a day p.r.n. 14. Cleocin T 1% topical, 1 application topical b.i.d. p.r.n. 15. Tylenol 650 mg p.o. q.4 hours p.r.n. 16. Triple antibiotic ointment 1 application b.i.d. p.r.n. 17. Omeprazole 20 mg p.o. q.a.m. 18. Bactrim DS 800/160 tab resumed at home. This medication has an undetermined duration. Need to confirm what patient is taking this for and if she still needs to be on it. 19. Acetaminophen 975 mg p.o. t.i.d. p.r.n. Max daily dose of Tylenol is 4000 mg, please do not exceed from all sources. 20. Docusate 100 mg p.o. b.i.d. p.r.n. 21. Oxycodone 5 mg p.o. q.4 hours p.r.n., max daily dose of 6. 22. Tramadol 50 mg p.o. q.12 hours, max daily dose of 2. 23. Warfarin 2 mg p.o. daily. The patient is to take 1 to 3 tabs daily. INR value to determine dose. DISCHARGE PLAN: The patient will be discharged to [facility]. She is weightbearing as tolerated with assistance. Okay to shower after her third postoperative day. No submerging the wound. Continue physical therapy and occupational therapy as shown. Nurse at [facility] to remove nayeli in 10 to 12 days as well as do wound checks. Nurse at [facility] to do blood draws for INRs on Mondays and , Coumadin dosing 4 mg on 06/24/17, INR recheck on 06/25 for further dosing instructions. Pain control with tramadol 50 mg q.12 hours p.r.n. pain, oxycodone 5 mg take 1 tablet every 4 hours as needed for severe breakthrough pain, max daily dose of 6. Antibiotics required to dental work. Follow up with Dr. Lamb within 4 weeks, call for an appointment, call sooner with any issues. VICKY STEVENS [id number]/[facility] #: [id number] [facility]ITALFranco
== END 2017-06-24 13:15 | DRG 470 ==
LOC: AA 06:14 → SSU 10:01
PROVIDERS: ADMIT Orthopaedic Surgery; ATTEND Internal Medicine
PROC: 0SRD0J9 Replacement of Left Knee Joint with Synthetic Substitute, Cemented, Open Approach (ICD-10-PCS; principal; 2017-06-22 07:30)
DX: M17.12 Unilateral primary osteoarthritis, left knee (principal); M21.062 Valgus deformity, not elsewhere classified, left knee; G40.909 Epilepsy, unspecified, not intractable, without status epilepticus; E03.9 Hypothyroidism, unspecified; F32.9 Major depressive disorder, single episode, unspecified; M85.80 Other specified disorders of bone density and structure, unspecified site; E55.9 Vitamin D deficiency, unspecified; F79 Unspecified intellectual disabilities; Z96.651 Presence of right artificial knee joint; D64.9 Anemia, unspecified; K21.9 Gastro-esophageal reflux disease without esophagitis; N18.3 Chronic kidney disease, stage 3 (moderate); N39.3 Stress incontinence (female) (male); Z90.89 Acquired absence of other organs; Z88.0 Allergy status to penicillin; Z88.7 Allergy status to serum and vaccine; I69.354 Hemiplegia and hemiparesis following cerebral infarction affecting left non-dominant side; Z79.01 Long term (current) use of anticoagulants; Z80.9 Family history of malignant neoplasm, unspecified
CPT/HCPCS: 36415; 74018; 80048; 85014; 85018; 85049; 85610; 88305; 88311; A9270-GY; C1776; G8978-GP-CK; G8979-GP-CI; G8987-GO-CL; G8988-GO-CI; J0690; J1100; J1170; J1644; J1885; J2001; J2250; J2270; J2704; J3010